=== PATIENT | female | born 1970 | race Caucasian/White ===

== ENCOUNTER → 2023-07-11 | Outpatient (CLI) | payer OTHER ==
--- NOTE | 2023-07-11 15:50 | XR ---
EXAMINATION TYPE: XR chest 2V DATE OF EXAM: 07/11/2023 3:38 PM COMPARISON: None TECHNIQUE: XR chest 2V Frontal and lateral views of the chest. CLINICAL INDICATION:Female, 52 years old with history of R59.0 ENLARGED LYMPH NODES; FINDINGS: Lungs/Pleura: There is no evidence of pleural effusion, focal consolidation, or pneumothorax. Pulmonary vascularity: Unremarkable. Heart/mediastinum: Cardiomediastinal silhouette is unremarkable. Musculoskeletal: No acute osseous pathology. Mild degenerative changes of the thoracic spine. IMPRESSION: No acute cardiopulmonary disease/process.
== END | disposition home or self-care (01) ==
LOC: RADXRMAIN 15:26
PROVIDERS: ATTEND Family Medicine
DX: R59.0 Localized enlarged lymph nodes (principal)
CPT/HCPCS: 71046

== ENCOUNTER → 2023-08-08 | Outpatient (CLI) | payer OTHER ==
--- NOTE | 2023-08-09 21:22 | US ---
EXAMINATION TYPE: US thyroid st tissue head/neck DATE OF EXAM: 08/08/2023 COMPARISON: [facility] 10 years ago 05/01/2012 CLINICAL INDICATION: Female, 53 years old with history of R59.0 ENLARGED LYMPHNODES; enlarged neck GLAND SIZE: Right Lobe: 7.7x4.3x3.7 cm Overall Parenchyma: heterogenous Left Lobe: 8.5x3.9x3.9 cm Overall Parenchyma: heterogenous Isthmus Thickness: 1.8 cm NODULES RIGHT: # of nodules measured on right: 0 LEFT: # of nodules measured on left: 0 ISTHMUS: # of nodules measured in the isthmus: 0 Bilateral neck scanned, no evidence of lymphadenopathy. Prior nodules difficult to discern, gland is overall heterogenous with no discrete nodule appreciated at this time IMPRESSION: 1. No enlarged suspicious thyroid nodules. 2. Thyroid has a heterogenous appearance, larger nodules may have indistinct borders. 3. Consider follow-up exam one year.
== END | disposition home or self-care (01) ==
LOC: RADUSWWP 16:48
PROVIDERS: ATTEND Surgery Plastic and Reconstructive Surgery
DX: R59.0 Localized enlarged lymph nodes (principal)
CPT/HCPCS: 76536

== ENCOUNTER → 2025-03-29 | Outpatient (CLI) | payer OTHER ==
[2025-03-29 07:37] LABS: African American GFR (CKD) >90 (>60 ml/min/1.73 sqM); Blood Urea Nitrogen 11 mg/dL (7-17); Non-African American GFR(CKD) >90 (>60 ml/min/1.73 sqM)
--- NOTE | 2025-03-29 09:49 | CT ---
EXAMINATION TYPE: CT soft tissue neck w con DATE OF EXAM: 03/29/2025 8:04 AM COMPARISON: Thyroid ultrasound. CLINICAL INDICATION: Female, 54 years old with history of E04.9 goiter; PHH, goiter in neck TECHNIQUE: Standard enhanced CT of the neck. Axial sections with coronal and sagittal reformats were obtained. Contrast used:100 ml mL of Isovue 300 with IV Contrast, (None if empty) Oral contrast used: (None if empty) CT DLP: 473 mGycm, Automated exposure control for dose reduction was used. FINDINGS: Brain: Visualized portions are grossly unremarkable. Orbits: Unremarkable Sinuses: Grossly unremarkable. Spaces of the neck: Clear and symmetric. Musculoskeletal: No acute osseous pathology. Lymph nodes: Multiple nonenlarged lymph nodes are seen along both anterior chains of the neck. Vascular structures: Visualized major arteries are patent without evidence of aneurysm. Thoracic Inlet/airway: Narrowed airway due to thyroid enlargement. Soft tissues/Thyroid: The thyroid gland is enlarged bilaterally in the right measuring up to 8.7 x 4. 5 x 4.8 cm and on the left measuring up to 8.7 x 4.5 x 5.3 cm. The gland extends into the superior me diastinum. This does narrow the airway slightly Other: none. IMPRESSION: Heterogenous enlarged bilateral thyroid gland. No suspicious lymphadenopathy at this time.. This comp resses the airway to the neck. [facility], , 03/29/2025 9:46 AM
== END | disposition home or self-care (01) ==
LOC: RADCTMAIN 06:24
PROVIDERS: ATTEND Family Medicine
DX: E04.2 Nontoxic multinodular goiter (principal)
CPT/HCPCS: 82565; 84520; 70491; 36415; Q9967